=== PATIENT | male | born 1935 | race African-American/Black ===

== ENCOUNTER 2016-08-10 15:56 | Emergency (ER) | payer OTHER, MEDICARE ==
[2016-08-10] MEDS ORDERED: ACETAMINOPHEN 325 MG TABLET PO ONE (16:26)
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
[2016-08-10] MEDS ORDERED: HYDROCODONE/ACETAMINOPHEN 5-325 MG 6 TAB/DSPK PO PRN (18:56)
[2016-08-10 19:44] VITALS: BP 153/69
== END 2016-08-10 19:20 | disposition home or self-care (01) ==
LOC: ER 15:56
DX: S29.012A Strain of muscle and tendon of back wall of thorax, initial encounter (principal); S39.012A Strain of muscle, fascia and tendon of lower back, initial encounter; S16.1XXA Strain of muscle, fascia and tendon at neck level, initial encounter; M54.2 Cervicalgia; M54.9 Dorsalgia, unspecified; Z87.891 Personal history of nicotine dependence; V87.7XXA Person injured in collision between other specified motor vehicles (traffic), initial encounter
CPT/HCPCS: 70450; 72050; 72070; 72125; 72128; 72131; 99284

== ENCOUNTER 2016-09-29 05:23 | Day surgery (SDC) | payer MEDICARE, OTHER ==
[2016-09-22 11:37] LABS: APPEARANCE,URINE CLEAR; BILIRUBIN,URINE NEGATIVE (NEGATIVE); GLUCOSE, URINE NEGATIVE (NEGATIVE); KETONES,URINE NEGATIVE (NEGATIVE); LEUKOCYTE ESTERASE,URINE NEGATIVE (NEGATIVE); NITRITE,URINE NEGATIVE (NEGATIVE); PROTEIN,URINE 30 mg/dL (NEGATIVE); URINE SPECIFIC GRAVITY 1.013
[2016-09-22 11:48] LABS: HEMATOCRIT 34.6 % (37.9-51.0); HEMOGLOBIN 11.5 g/dL (13.5-17.0); HGB HCT DIFFERENCE -0.1; MEAN CORPUSCULAR HEMOGLOBIN 30.2 pg (27.0-33.4); MEAN CORPUSCULAR HGB CONC 33.4 g/dL (32.0-36.0); MEAN CORPUSCULAR VOLUME 91 fl (80-97); RED BLOOD COUNT 3.82 10^6/uL (4.35-5.55); RED CELL DISTRIBUTION WIDTH 14.3 % (11.5-14.0); WHITE BLOOD COUNT 8.5 10^3/uL (4.0-10.5)
[2016-09-22 12:15] LABS: ANION GAP 13 (5-19); BLOOD UREA NITROGEN 33 mg/dL (7-20); CALCIUM 10.2 mg/dL (8.4-10.2); CARBON DIOXIDE 26 mmol/L (22-30); CHLORIDE 105 mmol/L (98-107); CREATININE RESULT 1.62 mg/dL (0.52-1.25); GLUCOSE 93 mg/dL (75-110); POTASSIUM 5.2 mmol/L (3.6-5.0); SODIUM 144.1 mmol/L (137-145)
--- NOTE | 2016-09-22 21:40 | EKG REPORT ---
SEVERITY:- ABNORMAL ECG - SINUS RHYTHM RBBB AND LAFB : Confirmed by: Felipe Burns 22-Sep-2016 21:39:00
[~2016-09-29 05:23] MED LIST: CEFAZOLIN 2 GM/D5W RTU 2 GM/50 ML RTUPB IV PRN; LACTATED RINGERS 1000 ML IV PRN; LIDOCAINE 0.5% INJ-PF (5 MG/ML) 50 ML SDV SUBCUT PRN
[2016-09-29] MEDS ORDERED: LIDOCAINE 0.5% INJ-PF (5 MG/ML) 50 ML SDV ONE (06:51)
[2016-09-29] MEDS ORDERED: ACETAMINOPHEN 100 ML IV ONE (07:15)
[2016-09-29] MEDS ORDERED: DEXMEDETOMIDINE INJ 80 MCG/20 ML VIAL IV ONE (07:15)
[2016-09-29] MEDS ORDERED: PROPOFOL INJ 200 MG/20 ML VIAL IV ONE (07:15)
[2016-09-29] MEDS ORDERED: MIDAZOLAM 2 MG/2 ML INJ ONE (07:15)
[2016-09-29] MEDS ORDERED: FENTANYL CITRATE INJ/PF 100 MCG/2 ML AMPUL ONE (07:15)
[2016-09-29] MEDS ORDERED: KETAMINE HCL INJ 500 MG/10 ML VIAL ONE (07:21)
[2016-09-29] MEDS ORDERED: MEPERIDINE HCL/PF INJ 25 MG/1 ML DISP.SYRIN IV PRN (08:07)
[2016-09-29] MEDS ORDERED: MORPHINE SULFATE 10 MG/ML INJ IV PRN (08:07)
[2016-09-29] MEDS ORDERED: PROMETHAZINE HCL INJ 25 MG/1 ML VIAL IV PRN ×2 (08:07)
[2016-09-29] MEDS ORDERED: ONDANSETRON HCL INJ/PF 4 MG/2 ML SDV IV PRN ×2 (08:07→08:51)
[2016-09-29] MEDS ORDERED: FENTANYL CITRATE INJ/PF 100 MCG/2 ML AMPUL IV PRN ×3 (08:07)
[2016-09-29] MEDS ORDERED: DIPHENHYDRAMINE HCL 50 MG/ML VIAL IV PRN (08:07)
[2016-09-29] MEDS ORDERED: OXYCODONE HCL IR 5 MG TABLET PO PRN (08:51)
--- NOTE | 2016-09-29 09:10 | Operative Report ---
Operative Report DATE OF SURGERY: 09/29/16 PREOPERATIVE DIAGNOSIS: dupuytrens disease OPERATION: Dupuytren's disease, right palm SURGEON: HALLEY GARVIN ANESTHESIA: GA TISSUE REMOVED OR ALTERED: Cord to pathology ESTIMATED BLOOD LOSS: 25 PROCEDURE: With the patient supine on the operative the right upper arm is prepped and draped in sterile fashion. A zigzag incision is made beginning on the ulnar aspect of the DIP joint of the ring finger and extending proximally and radially to the PIP joint, ulnarly to the MCP joint and then zigzagged up almost to the palmar crease. The incision is opened and the underlying cord identified. Blunt dissection was used to develop the surrounding cord. It's divided proximally. The neurovascular structures are identified on either side of the ring finger in the cord. Dissection. Distal continues distally. It's transected along the ulnar border of the middle phalanx delivered from the field. The wound is irrigated. Hemostasis obtained with bipolar cautery. The wound is then reapproximated using interrupted 4-0 nylon. A sterile compressive dressing was applied and the patient's returned to the PACU.
[2016-09-29 10:50] VITALS: BP 159/75
[2016-09-29] MEDS ORDERED: LIDOCAINE 2% INJ-PF (20 MG/ML) 10 ML AMPUL ONE (11:02)
[2016-09-29] MEDS ORDERED: ONDANSETRON HCL INJ/PF 4 MG/2 ML SDV ONE (11:02)
== END 2016-09-29 10:55 | disposition home or self-care (01) ==
LOC: OROUT 05:23
PROVIDERS: ATTEND Orthopaedic Surgery
PROC: 0JNJ0ZZ Release Right Hand Subcutaneous Tissue and Fascia, Open Approach (ICD-10-PCS; principal; 2016-09-29 07:30)
DX: M72.0 Palmar fascial fibromatosis [Dupuytren] (principal); I10 Essential (primary) hypertension; M19.90 Unspecified osteoarthritis, unspecified site; E11.9 Type 2 diabetes mellitus without complications; Z79.899 Other long term (current) drug therapy; Z87.891 Personal history of nicotine dependence
CPT/HCPCS: 93005; 36415 ×2; 82962; 84132; 85027; 80048; 81001; 83036; 88304 ×2; 93010; 26123; J2250; J3010; J3490 ×4; J2405; J2704; A9270; J0690; J0131; 1810

== ENCOUNTER 2019-05-03 14:32 | Emergency (ER) | payer MEDICARE, OTHER ==
[2019-05-03] MEDS ORDERED: ACETAMINOPHEN 325 MG TABLET PO ONE (15:42)
--- NOTE | 2019-05-03 15:43 | ER Document Report ---
ED Medical Screen (RME) - General Chief Complaint: Fall Stated Complaint: FALL Time Seen by Provider: 05/03/19 15:38 Primary Care Provider: RADHA AGUILAR MD [Primary Care Provider] - Follow up as needed Mode of Arrival: Wheelchair Information source: Patient Notes: 83-year-old male presented to ED for complaint of pain to the left lower ribs and mouth after he fell while getting out of his truck. He states he just took a physical last week a day and everything was okay but today he tripped coming out of his truck and face planted. He stated it is very painful to take breath on the left lower ribs and is having a hard time. There is diminished lung sounds on the left lower lung. We will send him straight to x-ray. I have greeted and performed a rapid initial assessment of this patient. A comprehensive ED assessment and evaluation of the patient, analysis of test results and completion of medical decision making process will be conducted by an additional ED providers. TRAVEL OUTSIDE OF THE [place] IN LAST 30 DAYS: No - Related Data Allergies/Adverse Reactions: No Known Allergies Allergy (Verified 05/03/19 15:37) Past Medical History - Past Medical History Cardiac Medical History: Reports: Hx Hypertension Denies: Hx Coronary Artery Disease, Hx Heart Attack Pulmonary Medical History: Reports: Hx Asthma - A CHILD Denies: Hx Bronchitis, Hx COPD, Hx Pneumonia Neurological Medical History: Denies: Hx Cerebrovascular Accident, Hx Seizures Renal/ Medical History: Denies: Hx Peritoneal Dialysis Musculoskeltal Medical History: Reports Hx Arthritis - Immunizations Hx Diphtheria, Pertussis, Tetanus Vaccination: No Physical Exam - Vital signs Vitals: Temp Pulse Resp BP Pulse Ox 98.2 F 85 16 185/68 H 98 05/03/19 14:43 05/03/19 14:43 05/03/19 14:43 05/03/19 14:43 05/03/19 14:43 Course - Vital Signs Vital signs: Temp Pulse Resp BP Pulse Ox 98.2 F 85 16 185/68 H 98 05/03/19 14:43 05/03/19 14:43 05/03/19 14:43 05/03/19 14:43 05/03/19 14:43 Doctor's Discharge - Discharge Referrals: RADHA AGUILAR MD [Primary Care Provider] - Follow up as needed
--- NOTE | 2019-05-03 16:09 | RADIOLOGY REPORT (SQ) ---
EXAM DESCRIPTION: RIBS LEFT W/PA CHEST COMPLETED DATE/TIME: 05/03/2019 3:59 pm REASON FOR STUDY: fall pain with breathing COMPARISON: None. TECHNIQUE: Frontal view of the chest and additional views of the left ribs acquired. NUMBER OF VIEWS: Five view. LIMITATIONS: None. FINDINGS: FRONTAL CXR: No pneumothorax. No pleural effusion. No atelectasis or infiltrates. RIBS: Minimally displaced fractures of the anterior 6th and 7th ribs. OTHER: No other significant finding. IMPRESSION: MINIMALLY DISPLACED FRACTURES OF THE ANTERIOR LEFT 6TH AND 7TH RIBS. COMMENT: SITE OF TRAUMA/COMPLAINT MARKED/STAMP COMPLETED: YES. TECHNICAL DOCUMENTATION: JOB ID: [id number] [employer]- All Rights Reserved Reading location - IP/workstation name: [email or web address]
--- NOTE | 2019-05-03 16:19 | RADIOLOGY REPORT (SQ) ---
EXAM DESCRIPTION: CT FACIAL AREA WITHOUT COMPLETED DATE/TIME: 05/03/2019 4:10 pm REASON FOR STUDY: fell facial pain COMPARISON: None. TECHNIQUE: Noncontrasted images through the facial bones and orbits windowed for bone and soft tissu e. Additional coronal and sagittal reconstructed images reviewed. All images stored on PACS. All CT scanners at this facility use dose modulation, iterative reconstruction, and/or weight based d osing when appropriate to reduce radiation dose to as low as reasonably achievable (ALARA). [facility]: Dose Right [facility]: CareDose [facility]: Dose Right [facility]: Teradose 4D [facility]: [employer] RADIATION DOSE: CT Rad equipment meets quality standard of care and radiation dose reduction techniq ues were employed. CTDIvol: 30.4 mGy. DLP: 595 mGy-cm. mGy. LIMITATIONS: None. FINDINGS: FACIAL BONES: No fracture or bone lesion. ORBITS: Intact. No fracture. Symmetric intact globes and retroorbital soft tissues. PARANASAL SINUSES: Clear. No significant mucosal thickening, mass or fluid. No nasal polyps. Maxill josephine sinus outlets are patent. SOFT TISSUES: No mass or edema. INFERIOR BRAIN: Limited view. No acute findings. OTHER: No other significant finding. IMPRESSION: NO ACUTE FINDINGS. TECHNICAL DOCUMENTATION: JOB ID: [id number] Quality ID # [id number]: Final reports with documentation of one or more dose reduction techniques (e.g., Au tomated exposure control, adjustment of the mA and/or kV according to patient size, use of iterative reconstruction technique) 2010 [employer]- All Rights Reserved Reading location - IP/workstation name: [email or web address]
[2019-05-03] MEDS ORDERED: LIDOCAINE 1% INJ-PF (10 MG/ML) 30 ML SDV INJ ONE (21:10)
[2019-05-03] MEDS ORDERED: AMOXICILLIN TRIHYD 250 MG CAPSULE PO ONE (23:00)
[2019-05-03] MEDS ORDERED: AMOXICILLIN TR/POT CLAVULANATE 500-125 MG TAB PO ONE (23:01)
--- NOTE | 2019-05-03 23:05 | ER Document Report ---
ED General - General Chief Complaint: Fall Injury Stated Complaint: FALL Time Seen by Provider: 05/03/19 15:38 Primary Care Provider: RADHA AGUILAR MD [Primary Care Provider] - Follow up in 3-5 days FLORESITA KINNEY MD [ACTIVE STAFF] - Follow up tomorrow Mode of Arrival: Wheelchair Notes: Patient is an 83-year-old male who presents the emergency department with a chief complaint of left rib pain and mouth pain. He was getting out of his truck and he ended up falling. He saw his primary care provider last week and everything was normal. Patient denies any chest pain, but does have rib pain. Patient is not on blood thinners and he is up-to-date on his immunizations. Patient denies any other symptoms. TRAVEL OUTSIDE OF THE [place] IN LAST 30 DAYS: No - Related Data Allergies/Adverse Reactions: No Known Allergies Allergy (Verified 05/03/19 15:37) Past Medical History - General Information source: Patient - Social History Smoking Status: Former Smoker Chew tobacco use (# tins/day): No Frequency of alcohol use: None Drug Abuse: None Family History: Reviewed & Not Pertinent Patient has suicidal ideation: No Patient has homicidal ideation: No - Past Medical History Cardiac Medical History: Reports: Hx Hypertension Denies: Hx Coronary Artery Disease, Hx Heart Attack Pulmonary Medical History: Reports: Hx Asthma - A CHILD Denies: Hx Bronchitis, Hx COPD, Hx Pneumonia Neurological Medical History: Denies: Hx Cerebrovascular Accident, Hx Seizures Renal/ Medical History: Denies: Hx Peritoneal Dialysis Musculoskeletal Medical History: Reports Hx Arthritis - Immunizations Hx Diphtheria, Pertussis, Tetanus Vaccination: No Hx Pneumococcal Vaccination: 04/23/13 Review of Systems - Review of Systems Notes: REVIEW OF SYSTEMS: CONSTITUTIONAL : Denies recent illness. Denies recent unintentional weight loss. Denies fever, chills, or sweats. EENT: Denies eye, ear, throat, discharge, or symptoms. Denies nasal or sinus congestion. See HPI. CARDIOVASCULAR: Denies chest pain. RESPIRATORY: Denies shortness of breath, cough, congestion, difficulty breathing, or wheezing. GASTROINTESTINAL: Denies nausea, vomiting, and diarrhea. Denies abdominal pain. Denies constipation. GENITOURINARY: Denies difficulty urinating, burning, blood in urine, urgency or frequency. MUSCULOSKELETAL: See HPI. SKIN: See HPI. HEMATOLOGIC : Denies easy bruising or bleeding. LYMPHATIC: Denies swollen, painful, enlarged glands. NEUROLOGICAL: Denies no numbness or tingling denies weakness. Denies headache. Denies altered mental status. Denies alteration in speech. PSYCHIATRIC: Denies stress, anxiety, alteration in sleep patterns, or depression. All other systems reviewed and negative. Physical Exam - Vital signs Vitals: Temp Pulse Resp BP Pulse Ox 98.2 F 85 16 185/68 H 98 05/03/19 14:43 05/03/19 14:43 05/03/19 14:43 05/03/19 14:43 05/03/19 14:43 - Notes Notes: PHYSICAL EXAMINATION: GENERAL: Appears well, healthy, well-nourished, no acute distress. HEAD: Normocephalic, atraumatic. EYES: PERRL, conjunctiva normal, all extraocular movements intact, sclera nonicteric ENT: Moist mucous membranes. NECK: Supple, no noticeable swelling, redness, rash. Normal range of motion. LUNGS: Equal breath sounds bilaterally and clear to auscultation. No wheezes rales or rhonchi. CARDIOVASCULAR: S1-S2, regular rate, regular rhythm. Radial pulses 2+, normal. ABDOMEN: Normoactive bowel sounds. Soft, nontender, no guarding, no rebound tenderness, and no masses palpated. EXTREMITIES: Normal strength and range of motion, no pitting or edema. No cyanosis. NEUROLOGICAL: Moves all extremities upon command. Strength 5/5 in all ex tremities. PSYCH: Normal mood, normal affect. SKIN: Warm, dry. No rash, lesions, ulcerations noted. Normal skin turgor. Laceration noted to left lower lateral lip. Patient's bottom lip mucosal membrane wrapped around left incisor. Course - Re-evaluation Re-evalutation: 05/04/19 Patient's lower lip was anesthetized with 1% lidocaine. I then released his lip from his incisor and place a suture to the hole. The left lower lateral lip was repaired. See procedure note. Patient CT of the head was negative for any intracranial bleeding. Patient does have rib fractures to his left sixth and seventh rib. He will be sent home with an incentive spirometer to prevent pneumonia. I have advised him to take ibuprofen and Tylenol for pain relief. Patient will be referred to plastic surgery to reevaluate his lip. He will also be started on Augmentin. He is in agreement with this plan. Follow-up precautions were given. Verbal discharge instructions were given to the patient. They verbalized understanding. They are stable for discharge. - Vital Signs Vital signs: Temp Pulse Resp BP Pulse Ox 99.1 F 75 20 145/99 H 100 05/03/19 23:32 05/03/19 23:32 05/03/19 23:32 05/03/19 23:32 05/03/19 23:32 Discharge - Discharge Clinical Impression: Rib fractures Fall Qualifiers: Encounter type: initial encounter Qualified Code(s): W19.XXXA - Unspecified fall, initial encounter Lip laceration Qualifiers: Encounter type: initial encounter Qualified Code(s): S01.511A - Laceration without foreign body of lip, initial encounter Condition: Stable Disposition: HOME, SELF-CARE Instructions: Laceration Care ([facility]), Prophylactic Antibiotic ([facility]) Additional Instructions: You were seen today in the emergency department for a fall. You have rib fractures on the left side. The sixth and seventh ribs have fractures to them. Please use the incentive spirometer to help prevent pneumonia. Please follow-up with your primary care provider in regards to this visit. You are also being referred to plastic surgery for reevaluation of your lip laceration. Please eat non-spicy foods. Stick to applesauce and bland foods to help prevent pain. You are also being started on antibiotics. Please take all your antibiotics as prescribed. Prescriptions: Amox Tr/Potassium Clavulanate [Augmentin 875-125 Tablet] 1 tab PO BID 7 Days #14 tablet Referrals: RADHA AGUILAR MD [Primary Care Provider] - Follow up in 3-5 days FLORESITA KINNEY MD [ACTIVE STAFF] - Follow up tomorrow
[2019-05-03 23:33] VITALS: BP 145/99
--- NOTE | 2019-05-04 07:20 | EKG REPORT ---
SEVERITY:- ABNORMAL ECG - SINUS RHYTHM RIGHT BUNDLE BRANCH BLOCK : Confirmed by: Felipe Burns 04-May-2019 07:19:14
== END 2019-05-03 23:43 | disposition home or self-care (01) ==
LOC: ER 14:32
DX: S01.511A Laceration without foreign body of lip, initial encounter (principal); S22.42XA Multiple fractures of ribs, left side, initial encounter for closed fracture; R07.81 Pleurodynia; V58.4XXA Person boarding or alighting a pick-up truck or van injured in noncollision transport accident, initial encounter; I10 Essential (primary) hypertension
CPT/HCPCS: 93005; 99284; 71101; 70486; 93010; 12011; A9270 ×3; J3490

== ENCOUNTER 2020-04-10 17:29 | Inpatient (IN) | payer MEDICARE, OTHER ==
[2020-04-10 18:56] LABS: HEMATOCRIT 37.1 % (37.9-51.0); HEMOGLOBIN 12.9 g/dL (13.5-17.0); MEAN CORPUSCULAR HEMOGLOBIN 33.6 pg (27.0-33.4); MEAN CORPUSCULAR HGB CONC 34.7 g/dL (32.0-36.0); MEAN CORPUSCULAR VOLUME 97 fl (80-97); PLATELET COUNT 290 10^3/uL (150-450); RED BLOOD COUNT 3.83 10^6/uL (4.35-5.55); RED CELL DISTRIBUTION WIDTH 16.4 % (11.5-14.0); WHITE BLOOD COUNT 9.5 10^3/uL (4.0-10.5)
[2020-04-10 19:09] LABS: ALBUMIN 4.3 g/dL (3.5-5.0); ALKALINE PHOSPHATASE 74 U/L (38-126); ANION GAP 9 (5-19); ASPARTATE AMINO TRANSFERASE 27 U/L (17-59); BILIRUBIN,DIRECT 0.4 mg/dL (0.0-0.4); BILIRUBIN,TOTAL 0.6 mg/dL (0.2-1.3); BLOOD UREA NITROGEN 38 mg/dL (7-20); CALCIUM 9.3 mg/dL (8.4-10.2); CARBON DIOXIDE 24 mmol/L (22-30); CHLORIDE 112 mmol/L (98-107); CREATINE KINASE 176 U/L (55-170); GLUCOSE 99 mg/dL (75-110); POTASSIUM 4.8 mmol/L (3.6-5.0); TOTAL PROTEIN 7.9 g/dL (6.3-8.2)
[2020-04-10 19:21] LABS: CREATINE KINASE MB 1.23 ng/mL (<4.55)
[2020-04-10 19:22] LABS: ABSOLUTE LYMPHOCYTES# (MANUAL) 1.3 10^3/uL (0.5-4.7); ABSOLUTE MONOCYTES # (MANUAL) 0.4 10^3/uL (0.1-1.4); BASOPHILS % (MANUAL) 0 % (0-2); EOSINOPHILS % (MANUAL) 0 % (0-6); LYMPHOCYTES % (MANUAL) 14 % (13-45); MONOCYTES % (MANUAL) 4 % (3-13); SEGMENTED NEUTROPHILS % (MAN) 82 % (42-78); TOTAL CELLS COUNTED 100
[2020-04-10 19:23] LABS: ANISOCYTOSIS 1+; PLATELET COMMENT ADEQUATE; TROPONIN I < 0.012 ng/mL
--- NOTE | 2020-04-10 20:56 | ER Document Report ---
ED General - General Chief Complaint: Syncope Stated Complaint: WEAKNESS/CONFUSION Time Seen by Provider: 04/10/20 20:13 Notes: Patient is an 84-year-old male that comes emergency department for chief complaint of syncopal episode. Patient states he hit his head on the side of the bed tonight when this happened. Patient denies headache. Patient states he still has vague tingling sensation in his extremities. There was a friend with the patient per EMS stated that the patient after he passed out seemed to have a facial droop and slurred speech, and he was complaining that his extremities were tingling. EMS noted the patient's blood glucose was in the 50s, patient was given oral glucose by EMS. When I asked patient states that he did not eat dinner and he also missed breakfast today. Patient also states that he is on glipizide, has been self around a month, he has passed out multiple times over the past 2 weeks. He denies chest pain, nausea/vomiting, fever/chills, shortness of breath, focal numbness or weakness, visual changes. Past medical history of DMII and hypertension. TRAVEL OUTSIDE OF THE [place] IN LAST 30 DAYS: No - Related Data Allergies/Adverse Reactions: No Known Allergies Allergy (Verified 05/03/19 15:37) Past Medical History - General Information source: Patient - Social History Smoking Status: Never Smoker Frequency of alcohol use: None Drug Abuse: None Lives with: Family Family History: Reviewed & Not Pertinent - Past Medical History Cardiac Medical History: Reports: Hx Hypertension Denies: Hx Coronary Artery Disease, Hx Heart Attack Pulmonary Medical History: Reports: Hx Asthma - A CHILD Denies: Hx Bronchitis, Hx COPD, Hx Pneumonia Neurological Medical History: Denies: Hx Cerebrovascular Accident, Hx Seizures Renal/ Medical History: Denies: Hx Peritoneal Dialysis Musculoskeletal Medical History: Reports Hx Arthritis - Immunizations Hx Diphtheria, Pertussis, Tetanus Vaccination: No Hx Pneumococcal Vaccination: 04/23/13 Review of Systems - Review of Systems Constitutional: See HPI EENT: No symptoms reported Cardiovascular: See HPI Respiratory: No symptoms reported Gastrointestinal: No symptoms reported Genitourinary: No symptoms reported Male Genitourinary: No symptoms reported Musculoskeletal: No symptoms reported Skin: No symptoms reported Hematologic/Lymphatic: No symptoms reported Neurological/Psychological: See HPI Physical Exam - Vital signs Vitals: Temp 98.4 F 04/10/20 17:30 - Notes Notes: GENERAL: Alert, interacts well. No acute distress. HEAD: Normocephalic, atraumatic. EYES: Pupils equal, round, and reactive to light. Extraocular movements intact. ENT: Oral mucosa moist, tongue midline. Oropharynx unremarkable. Airway patent. NECK: Full range of motion. Supple. Trachea midline. No lymphadenopathy. LUNGS: Clear to auscultation bilaterally, no wheezes, rales, or rhonchi. No respiratory distress. Non-tender chest wall. HEART: Regular rate and rhythm. No murmur ABDOMEN: Soft, non-tender. Non-distended. EXTREMITIES: Moves all 4 extremities spontaneously. No edema, normal radial and dorsalis pedis pulses bilaterally. No cyanosis. BACK: no cervical, thoracic, lumbar midline tenderness. No saddle anesthesia, normal distal neurovascular exam. Moves all extremities in full range of motion. NEUROLOGICAL: Alert and oriented x3. Normal speech. Cranial nerves II through XII grossly intact. Strength 5/5 in all extremities. PSYCH: Normal affect, normal mood. SKIN: Skin avulsion and almost ulceration to the right anterior ankle, otherwise unremarkable. Course - Re-evaluation Re-evalutation: Patient is alert and well-appearing. He is not having any current symptoms, his vital signs at this time are unremarkable. No obvious signs of trauma from his syncopal episode, he reported hitting his head, CT of the head and neck are negative, patient with no headache or neurological symptoms at this time. CBC nonspecific, chemistry unremarkable, glucose is 72, this was rechecked and was 70, patient was fed (patient ate crackers and a whole ham sandwich) and is still down trended, suspect patient had syncopal episode secondary to hypoglycemia from sulfonylureas. EKG nonspecific, initial troponin negative, chest x-ray unremarkable, remaining work-up nonspecific. Repeat troponin is indeterminate now which is slightly elevated but is not in the positive range. Patient still denies any symptoms. Because of patient's hypoglycemia, sulfonylurea use, syncopal episode, advanced age, and elevating troponin I discussed with Dr. pugh, will discuss with hospitalist for admission/observation. I discussed with patient, he states understanding and agreement. Discussed with Dr. Sims, hospitalist, patient accepted to telemetry full admission. - Vital Signs Vital signs: Temp Pulse Resp BP Pulse Ox 98.3 F 66 14 152/55 H 100 04/11/20 03:16 04/11/20 03:16 04/11/20 03:16 04/11/20 03:16 04/11/20 03:16 - Laboratory Result Diagrams: 04/10/20 18:40 04/10/20 18:40 Laboratory results interpreted by me: 04/10/20 04/10/20 04/11/20 18:40 18:40 01:17 RBC 3.83 L Hgb 12.9 L Hct 37.1 L MCH 33.6 H RDW 16.4 H Seg Neuts % (Manual) 82 H Sodium 145.4 H Chloride 112 H BUN 38 H Creatinine 2.39 H Est GFR ( Amer) 32 L Est GFR (MDRD) Non-Af 26 L POC Glucose 132 H Creatine Kinase 176 H - EKG Interpretation by Me Additional EKG results interpreted by me: EKG shows sinus rhythm at a rate of 64, QTc 463, left axis deviation. no T wave inversions or ST segment changes in consecutive leads. CA interval of 176. Discharge - Discharge Clinical Impression: Hypoglycemia Syncopal episodes Qualifiers: Syncope type: unspecified Qualified Code(s): R55 - Syncope and collapse Condition: Stable Disposition: ADMITTED INPATIENT Admitting Provider: Levi (Hospitalist) Unit Admitted: Telemetry
--- NOTE | 2020-04-10 22:03 | EKG REPORT ---
SEVERITY:- ABNORMAL ECG - SINUS RHYTHM RIGHT BUNDLE BRANCH BLOCK : Confirmed by: Evi Neumann MD 10-Apr-2020 22:01:49
--- NOTE | 2020-04-10 22:18 | RADIOLOGY REPORT (SQ) ---
CT BRAIN AND CERVICAL SPINE HISTORY: Trauma. COMPARISON: 08/10/2016 TECHNIQUE: CT scan of the brain and cervical spine was performed without IV contrast. This exam was performed according to our departmental dose-optimization program, which includes automated exposure control, adjustment of the mA and/or kV according to patient size and/or use of iterative reconstruction technique. FINDINGS: BRAIN: There are scattered areas of hypoattenuation within the periventricular white matter, which likely represent chronic microvascular ischemia. No evidence of acute infarction, intracranial hemorrhage, extra-axial fluid collection, or midline shift. No air-fluid levels are seen in the paranasal sinuses to suggest acute sinusitis. No depressed skull fracture. CERVICAL SPINE: No acute cervical fracture or prevertebral soft tissue swelling. There is straightening of the normal cervical lordosis, which may be due to cervical collar, muscle spasm, or patient positioning. There is multilevel degenerative disc disease and facet arthropathy throughout cervical spine. The spinal canal is not well-visualized due to artifact. No definite evidence of high-grade spinal canal stenosis however. IMPRESSION: 1. No acute intracranial hemorrhage. 2. No acute fracture or subluxation of the cervical spine.
[2020-04-11] MEDS ORDERED: NORMAL SALINE 1000 ML 1,000 ML IV ONE (01:46)
[2020-04-11] MEDS ORDERED: ONDANSETRON HCL INJ/PF 4 MG/2 ML SDV IV PRN (01:47)
[2020-04-11] MEDS ORDERED: ACETAMINOPHEN 325 MG TABLET PO PRN (01:47)
[2020-04-11] MEDS ORDERED: PROMETHAZINE HCL INJ 25 MG/1 ML VIAL IV PRN (01:47)
[2020-04-11] MEDS ORDERED: TEMAZEPAM 7.5 MG CAPSULE PO PRN (01:47)
[2020-04-11] MEDS ORDERED: IPRATROPIUM/ALBUTEROL 0.5-2.5 MG/3 ML AMPUL NEB PRN (01:47)
[2020-04-11] MEDS ORDERED: NORMAL SALINE 1000 ML 1,000 ML IV PRN (01:47)
[2020-04-11] MEDS ORDERED: MAGNESIUM HYDROXIDE SUSP 30 ML UDCUP PO PRN (01:47)
[2020-04-11] MEDS ORDERED: HYDRALAZINE HCL INJ/PF 20 MG/1 ML SDV IV PRN (01:57)
[2020-04-11] MEDS ORDERED: GLUCAGON,HUMAN RECOMB 1 MG INJ IM PRN (01:59)
[2020-04-11] MEDS ORDERED: DEXTROSE 50%-WATER 25 GM/50 ML DISP.SYRIN IV PRN ×2 (01:59)
[2020-04-11] MEDS ORDERED: DEXTROSE 40% GEL 15 GM TUBE PO PRN ×2 (01:59)
--- NOTE | 2020-04-11 02:01 | RADIOLOGY REPORT (SQ) ---
CHEST X-RAY 1 VIEW on 04/11/2020 at 1:36 AM CLINICAL INDICATION: Syncopal episode COMPARISON: 05/03/2019 FINDINGS: Heart is upper limits normal for size. A few wires are noted projecting over the chest. The lungs are clear. Hilar and mediastinal contours are within normal limits. Mild degenerative changes are noted in the shoulders. Pulmonary vascularity is within normal limits. IMPRESSION: No acute disease.
--- NOTE | 2020-04-11 04:06 | PDOC H&P ---
History of Present Illness Admission Date/PCP: 04/11/20 01:30 RADHA AGUILAR MD History of Present Illness: ZAYNAB MADRIGAL is a 84 year old male past medical history of diabetes, hypertensio n, hyperlipidemia, BPH, erectile dysfunction, diabetic neuropathy, brought to ED after syncopal episode. Patient was found on the floor by her friend and EMS was called and patient was noted to have blood glucose level of 50s, patient was started on hypoglycemic protocol and hospitalist consulted for admission. CT head and neck were negative for acute abnormality. On my encounter patient comfortably sitting with no apparent distress, alert and oriented x4, cooperative and pleasant, denies any focal neurological symptoms, stating that 3 weeks ago he was found on the floor by his friend but did not seek any medical attention, patient is stating that once a while he feels lightheaded but denies any chest pain, palpitation, history of stroke, TIA, or any cardiac history. Patient was found on the floor again today by history as patient was brought to ED, patient stating that he does not recall anything preceding to the event however when his friend picked him up he was alert and oriented and was not confused, he was not noted to have had any convulsions. Patient denies any fever, chills, nausea, vomiting, diarrhea, constipation or any urinary symptoms. Patient has severe bilateral lower extremity neuropathy, as a result he tends to hit his lower extremities backslash has sustained several minor traumas, he also had a left foot heel ulceration due to the fall. He does wear diabetic shoes. Patient was seen by his PCP about 3 weeks ago and he was told that he was totally fine. Patient takes multiple medications including amlodipine, lisinopril, hydrochlorothiazide, Januvia, pioglitazone, glyburide, tadalafil, sildenafil. Patient does not use any [id number] NSAIDs or any nephrotoxic medication. Patient does state that he does not drink much fluid due to his BPH. Past Medical History Cardiac Medical History: Reports: Hypertension Denies: Coronary Artery Disease, Myocardial Infarction Pulmonary Medical History: Reports: Asthma - A CHILD Denies: Bronchitis, Chronic Obstructive Pulmonary Disease (COPD), Pneumonia Neurological Medical History: Denies: Seizures Musculoskeltal Medical History: Reports: Arthritis Hematology: Denies: Anemia Social History Smoking Status: Never Smoker Family History Family History: Reviewed & Not Pertinent Parental Family History Reviewed: Yes Children Family History Reviewed: Yes Sibling(s) Family History Reviewed.: Yes Medication/Allergy Home Medications: Amlodipine Besylate [Norvasc 5 mg Tablet] 5 mg PO QPM 05/03/19 Amox Tr/Potassium Clavulanate [Augmentin 875-125 Tablet] 1 tab PO BID 7 Days #14 tablet 05/03/19 Glipizide [Glipizide Xl] 10 mg PO BID 05/03/19 Lisinopril/Hydrochlorothiazide [Lisinopril-Hctz 20-12.5 mg Tab] 1 tab PO DAILY 05/03/19 Pioglitazone HCl [Actos 30 mg Tablet] 30 mg PO DAILY 05/03/19 Pravastatin Sodium 40 mg PO QHS 05/03/19 Vit/Dha [ Multi + Dha Capsule] 1 cap PO DAILY 05/03/19 Sitagliptin Phosphate [Januvia 50 mg Tablet] 50 mg PO DAILY 05/03/19 Allergies/Adverse Reactions: No Known Allergies Allergy (Verified 05/03/19 15:37) Review of Systems Review of Systems: as per hpi Physical Exam Vital Signs: Temp Pulse Resp BP Pulse Ox 98.4 F 15 143/66 H 99 04/10/20 17:30 04/11/20 02:01 04/11/20 02:01 04/11/20 02:01 Intake & Output 04/09/20 04/10/20 04/11/20 06:59 06:59 06:59 Weight 86.3 kg General appearance: PRESENT: no acute distress, well-developed, well-nourished Head exam: PRESENT: atraumatic, normocephalic Respiratory exam: PRESENT: clear to auscultation linwood. ABSENT: rales, rhonchi, wheezes Cardiovascular exam: PRESENT: RRR. ABSENT: diastolic murmur, rubs, systolic murmur GI/Abdominal exam: PRESENT: normal bowel sounds, soft. ABSENT: distended, guarding, mass, organolmegaly, rebound, tenderness Extremities exam: PRESENT: full ROM. ABSENT: calf tenderness, clubbing, pedal edema Neurological exam: PRESENT: alert, awake, oriented to person, oriented to place, oriented to time, oriented to situation, CN II-XII grossly intact. ABSENT: motor sensory deficit Skin exam: PRESENT: dry, intact, warm, other - Multiple scabs anterior bilateral talavera. Left heel healing ulceration 4 x 4 cm. No sign of discharge. No tenderne ss.. ABSENT: cyanosis, rash Results Laboratory Results: 04/10/20 18:40 04/10/20 18:40 04/10/20 04/10/20 18:40 18:40 WBC 9.5 RBC 3.83 L Hgb 12.9 L Hct 37.1 L MCV 97 MCH 33.6 H MCHC 34.7 RDW 16.4 H Plt Count 290 Seg Neutrophils % Not Reportable Sodium 145.4 H Potassium 4.8 Chloride 112 H Carbon Dioxide 24 Anion Gap 9 BUN 38 H Creatinine 2.39 H Est GFR ( Amer) 32 L Glucose 99 Calcium 9.3 Total Bilirubin 0.6 AST 27 Alkaline Phosphatase 74 Total Protein 7.9 Albumin 4.3 04/10/20 04/10/20 04/11/20 18:40 18:40 00:04 Creatine Kinase 176 H CK-MB (CK-2) 1.23 Troponin I < 0.012 0.028 Impressions: Cervical Spine CT 04/10/20 20:54 IMPRESSION: 1. No acute intracranial hemorrhage. 2. No acute fracture or subluxation of the cervical spine. Head CT 04/10/20 20:54 IMPRESSION: 1. No acute intracranial hemorrhage. 2. No acute fracture or subluxation of the cervical spine. Chest X-Ray 04/11/20 01:13 IMPRESSION: No acute disease. Assessment and Plan - Diagnosis (1) Syncopal episodes Qualifiers: Syncope type: unspecified Qualified Code(s): R55 - Syncope and collapse Is this a current diagnosis for this admission?: Yes Plan: Likely due to hypoglycemia and orthostatic hypotension complicated by polypharmacy. Patient does not take much p.o. fluids, takes lisinopril, hydrochlorothiazide, amlodipine, tadalafil and Cialis. Denies any CAD, denies any chest pain, denies any palpitation, any history of seizure disorder TIA or CVA. CT head and neck negative for any acute abnormalities. Admit to telemetry, fall, seizure and aspiration precautions. Adjust medications, hold antidiabetic's. (2) Hypoglycemia Is this a current diagnosis for this admission?: Yes Plan: Likely due to polypharmacy in the setting of worsening renal function. Patient taking glipizide, pioglitazone and Januvia. Creatinine is 2.35 from baseline of 1.6. Admit to telemetry, hypoglycemia protocol, encourage frequent snacking. Titrate antidiabetics based on renal function. (3) Hypertension Is this a current diagnosis for this admission?: Yes Plan: Uncontrolled. Clinically looks dry. Home medications are lisinopril, hydrochlorothiazide, amlodipine. Patient also taking prazosin, Cialis and tadalafil. Need to DC hydrochlorothiazide due to recently renal function and orthostatic hypotension. Hold lisinopril pending stabilization renal function. Continue amlodipine, PRN IV hydralazine, PRN IV metoprolol. Patient was advised to ED takes tadalafil or Cialis and was cautioned about the risk of hypotension. Patient voiced understanding. (4) Acute kidney injury superimposed on CKD Is this a current diagnosis for this admission?: Yes Plan: Multifactorial. Likely due to chronic hypertension diabetes worsened by prerenal due to dehydration and likely hypotension caused by polypharmacy. Electrolytes WNL, monitor electrolytes and volume status, replace electrolytes as needed. Cautious volume restriction guided by volume status. Avoid nephrotoxic meds. Nephrology consulted. Follow-up recommendations. (5) Polypharmacy Is this a current diagnosis for this admission?: Yes Plan: Patient taking prazosin, amlodipine, tadalafil, Cialis, amlodipine, hydrochlorothiazide, lisinopril, Januvia, glipizide, pioglitazone. Patient medication needs to be readjusted due to risk of hypoglycemia and orthostatic hypotension and syncope. (6) Diabetic neuropathy Qualifiers: Diabetes mellitus type: type 2 Is this a current diagnosis for this admission?: Yes Plan: Bilateral lower extremity severe diabetic neuropathy. Patient has sustained several anterior talavera with scab formation. Patient also have a healing ulcer in his left heel with with no sign infection. Patient does have diabetic shoes. Will start on gabapentin, optimize diabetic control. Wound care. Indicated call surgery for evaluation of foot ulcer. (7) Diabetes Qualifiers: Diabetes mellitus type: type 2 Is this a current diagnosis for this admission?: Yes Plan: Presented with hypoglycemia. No recent hemoglobin A1c. Hemoglobin stable in 2017 11.1%. Patient probably is overtreated for his diabetes. Given age and multiple comorbidities patient hemoglobin A1c goal should be above 7%. Diabetic diet, diabetic education, sliding scale insulin, hold oral antidiabetic's, adjust dose as needed, Accu-Chek, hypoglycemia protocol. - Time Time Spent with patient: 35 or more minutes Medications reviewed and adjusted accordingly: Yes Anticipated Discharge Disposition: Home with Home Health Anticipated Discharge Timeframe: within 72 hours
[2020-04-11] MEDS ORDERED: ASPIRIN 81 MG TABLET, CHEWABLE PO ONE (04:15)
[2020-04-11] MEDS: GABAPENTIN 100 MG CAPSULE PO SCH ×3 (05:01→21:31)
[2020-04-11] MEDS: HEPARIN SOD (PORCINE) 5,000 UNIT/ML 1 ML VIAL SUBCUT SCH ×3 (05:01→21:31)
[2020-04-11] MEDS: INSULIN LISPRO 100 UNIT/ML 3 ML VIAL SUBCUT SCH ×4 (09:32→21:13)
[2020-04-11] MEDS: DOCUSATE SODIUM 100 MG CAPSULE PO SCH (09:34)
[2020-04-11] MEDS: FAMOTIDINE 20 MG TABLET PO SCH (09:34)
[2020-04-11] MEDS: AMLODIPINE BESYLATE 5 MG TABLET PO SCH ×2 (09:34→21:31)
[2020-04-11] MEDS: LISINOPRIL 10 MG TABLET PO SCH (09:34)
[2020-04-11] MEDS: HYDROCHLOROTHIAZIDE 12.5 MG TABLET PO SCH (09:36)
[2020-04-11] MEDS ORDERED: AMOXICILLIN TR/POT CLAVULANATE 875-125 MG TAB PO SCH (10:00)
[2020-04-11] MEDS ORDERED: AMOXICILLIN TR/POT CLAVULANATE 500-125 MG TAB PO SCH (10:30)
[2020-04-11] MEDS: SITAGLIPTIN PHOSPHATE 50 MG TABLET PO SCH (11:44)
[2020-04-11 11:54] LABS: ABSOLUTE EOSINOPHILS # (AUTO) 0.2 10^3/uL (0.0-0.6); ABSOLUTE LYMPHOCYTES (AUTO) 2.3 10^3/uL (0.5-4.7); ABSOLUTE MONOCYTES (AUTO) 0.5 10^3/uL (0.1-1.4); ABSOLUTE NEUT (AUTO) 5.4 10^3/uL (1.7-8.2); ABSOLUTE RETICS # 0.027 10^6/uL (0.028-0.122); BASOPHILS % (AUTO) 0.5 % (0-2); EOSINOPHILS % (AUTO) 2.1 % (0-6); HEMOGLOBIN 11.1 g/dL (13.5-17.0); LYMPHOCYTES % (AUTO) 26.9 % (13-45); MEAN CORPUSCULAR HEMOGLOBIN 33.9 pg (27.0-33.4); MEAN CORPUSCULAR HGB CONC 34.7 g/dL (32.0-36.0); MEAN CORPUSCULAR VOLUME 98 fl (80-97); MONOCYTES % (AUTO) 6.3 % (3-13); PLATELET COUNT 273 10^3/uL (150-450); RED BLOOD COUNT 3.28 10^6/uL (4.35-5.55); RED CELL DISTRIBUTION WIDTH 16.2 % (11.5-14.0); RETICULOCYTE COUNT (AUTO) 0.83 % (0.66-2.85); SEGMENTED NEUTROPHILS % (AUTO) 64.2 % (42-78); TOTAL CELLS COUNTED % (AUTO) 100 %; WHITE BLOOD COUNT 8.4 10^3/uL (4.0-10.5)
--- NOTE | 2020-04-11 12:15 | RADIOLOGY REPORT (SQ) ---
EXAM DESCRIPTION: U/S RETROPERITON LTD IMAGES COMPLETED DATE/TIME: 04/11/2020 2:56 am REASON FOR STUDY: SANDIE COMPARISON: None. TECHNIQUE: Dynamic and static grayscale images acquired of the kidneys and bladder and recorded on P ACS. Additional selected color Doppler and spectral images recorded. LIMITATIONS: None. FINDINGS: RIGHT KIDNEY: Normal size, 9.6 cm. Normal echogenicity. No solid or suspicious masses . No hydronephrosis. No calcifications. LEFT KIDNEY: Normal size, 9.1 cm. Normal echogenicity. No solid masses. There are some small cy sts. No hydronephrosis. No calcifications. BLADDER: There is nodular protrusion of the prostate gland into the base of the bladder. The prostat e gland is enlarged, measuring 6.1 x 4.5 x 5.1 cm. Ureteral jets are not seen. OTHER FINDINGS: No other significant finding. IMPRESSION: Prostatic enlargement with nodular protrusion into the base of the bladder. TECHNICAL DOCUMENTATION: JOB ID: [id number] 2010 [employer]- All Rights Reserved Reading location - IP/workstation name: [email or web address]
[2020-04-11 12:19] LABS: ANION GAP 8 (5-19); BLOOD UREA NITROGEN 36 mg/dL (7-20); CALCIUM 8.6 mg/dL (8.4-10.2); CARBON DIOXIDE 22 mmol/L (22-30); CHLORIDE 113 mmol/L (98-107); GLUCOSE 107 mg/dL (75-110); PHOSPHORUS 2.8 mg/dL (2.5-4.5); POTASSIUM 4.5 mmol/L (3.6-5.0)
[2020-04-11 13:25] LABS: FOLATE > 20.00 ng/mL (>2.76)
[2020-04-11] MEDS: 1/2 NORMAL SALINE 1,000 ML IV PRN (14:59)
[2020-04-11] MEDS ORDERED: CYANOCOBALAMIN (VITAMIN B-12) INJ 1000 MCG/1 ML VIAL IM ONE (15:00)
[2020-04-11] MEDS ORDERED: TAMSULOSIN HCL 0.4 MG CAP.SR.24H PO SCH (18:00)
[2020-04-11 19:54] LABS: APPEARANCE,URINE CLEAR; BILIRUBIN,URINE NEGATIVE (NEGATIVE); COLOR,URINE YELLOW; GLUCOSE, URINE NEGATIVE (NEGATIVE); KETONES,URINE NEGATIVE (NEGATIVE); LEUKOCYTE ESTERASE,URINE NEGATIVE (NEGATIVE); NITRITE,URINE NEGATIVE (NEGATIVE); PROTEIN,URINE 30 mg/dL (NEGATIVE); URINE SPECIFIC GRAVITY 1.014; UROBILINOGEN,URINE NEGATIVE mg/dL (<2.0)
[2020-04-11 20:19] LABS: URINE CREATININE 131.4 mg/dL (22-328); URINE PROTEIN 22.4 mg/dL (<12)
--- NOTE | 2020-04-11 21:27 | EKG REPORT ---
SEVERITY:- ABNORMAL ECG - UNKNOWN RHYTHM, IRREGULAR RATE 56-82 RIGHT BUNDLE BRANCH BLOCK : Confirmed by: Evi Neumann MD 11-Apr-2020 21:27:20
--- NOTE | 2020-04-11 22:00 | PDOC CONSULTATION ---
Consultation Consult Date: 04/11/20 Provider Consulted: YOU GRIJALVA Consult reason:: SANDIE/CKD History of Present Illness Admission Date/PCP: 04/11/20 01:30 RADHA AGUILAR MD History of Present Illness: ZAYNAB MADRIGAL is a 84 year old male with history of hypertension, diabetes mellitus type 2, hyperlipidemia, BPH, erectile dysfunction, and diabetic neuropathy who was brought to the ED last night due to a syncopal episode. Apparently a friend found the patient on the floor unresponsive and so EMS was called. Patient was noted to have blood glucose of only 56. Patient really could not tell me what happened prior to him passing out last night. He stated that today he just feels great and has no complaints. He remembered that about 3 weeks ago he also had an episode of passing any solid masses no hydronephrosis. Does indicate enlarged prostate with nodular protrusion to the base of the bladder. At home. He said nobody found him at the time but then when he got awakened he had to get up on his own sustaining some abrasion in his left knee and leg and right heel ulceration. He did not seek any medical attention at the time. Patient has bilateral lower extremity neuropathy and feels numb so he has had trauma to his legs. Patient states that he just saw his PCP about 3 weeks ago and was told that he was doing great. He also stated that he ordered some medication in TV 3 weeks ago for erectile dysfunction which he has been taking daily but could not tell me the name of it. Initial evaluation showed no acute findings on the cervical spine CT, head CT and chest x-ray. His labs showed a BUN of 38, creatinine of 2.39 with EGFR of 32. Today he has a BUN of 36, creatinine of 2.19 and EGFR of 35. Review of previous records showed that in September 2016 he had a BUN of 33, creatinine 1.62 with GFR of 50. His hemoglobin is 9, phosphorus 2.8, PTH of 165.6 and vitamin D of 40.8. His iron is 34, T sat of 12 ferritin 88.2. Patient states that he was told that he has weak kidneys 3 to 4 weeks ago. He stated that he saw urologist, Dr. Knott and he was given a medication which helped to empty his bladder. Otherwise he states that he has now good urine flow and denies any incontinence currently, no gross hematuria. He denies any leg swelling. He denies any history of kidney stones, hepatitis no use of any NSAIDs. His kidney ultrasound showed relatively bilateral small kidneys with normal echogenicity and no hydronephrosis. It also indicates enlarged prostate with nodular protrusion at the base of the bladder. Currently denies any chest pains, shortness of breath, dizziness, headache, palpitations, cough, fever, nausea, vomiting or diarrhea. Past Medical History Cardiac Medical History: Reports: Hyperlipidemia, Hypertension-primary Pulmonary Medical History: Reports: Asthma - A CHILD Endocrine Medical History: Reports: Diabetes Mellitus Type 2, Hypogonadism, Other - Erectile dysfunction Complications of Diabetes: Reports: Autonomic Neuropathy Renal/ Medical History: Reports: Benign Prostatic Hyperplasia, Chronic Kidney Disease Stage III Musculoskeltal Medical History: Reports: Arthritis, Other - History of left leg fracture Past Surgical History Past Surgical History: Reports: Appendectomy, Orthopedic Surgery - Left knee surgery, right hip surgery Social History Information Source: Patient Lives with: Alone Smoking Status: Former Smoker - Quit 20 years ago Cigarettes Packs Per Day: 2 Electronic Cigarette use?: No Number of Years Smokin Last Time Smoked: 20 years Frequency of Alcohol Use: None Hx Recreational Drug Use: No Drugs: None Hx Prescription Drug Abuse: No Family History Family History: Malignancy - Brother, father, mother Parental Family History Reviewed: Yes Children Family History Reviewed: Yes Sibling(s) Family History Reviewed.: Yes Medication/Allergy Home Medications: Amlodipine Besylate [Norvasc 5 mg Tablet] 5 mg PO QPM 05/03/19 Glipizide [Glipizide Xl] 10 mg PO BID 05/03/19 Lisinopril/Hydrochlorothiazide [Lisinopril-Hctz 20-12.5 mg Tab] 1 tab PO QAM 05/03/19 Pioglitazone HCl [Actos 30 mg Tablet] 30 mg PO DAILY 05/03/19 Pravastatin Sodium 40 mg PO QPM 05/03/19 Sitagliptin Phosphate [Januvia 50 mg Tablet] 50 mg PO DAILY 05/03/19 Sildenafil Citrate 50 mg PO PRN PRN 04/11/20 Allergies/Adverse Reactions: No Known Allergies Allergy (Verified 05/03/19 15:37) Review of Systems All systems: reviewed and no additional remarkable complaints except as stated Review of Systems: Constitutional: ABSENT: chills, fatigue, fever(s), headache(s), weight gain, weight loss Eyes: ABSENT: visual disturbances Ears: ABSENT: hearing changes Cardiovascular: ABSENT: chest pain, dyspnea on exertion, edema, orthropnea, palpitations Respiratory: ABSENT: cough, dyspnea, hemoptysis Gastrointestinal: ABSENT: abdominal pain, constipation, diarrhea, hematemesis, hematochezia, nausea, vomiting Genitourinary: ABSENT: dysuria, hematuria Musculoskeletal: ABSENT: joint swelling Integumentary: ABSENT: rash, wounds Neurological: ABSENT: abnormal gait, abnormal speech, confusion, dizziness, focal weakness, numbness, syncope Psychiatric: ABSENT: anxiety, depression Endocrine: ABSENT: cold intolerance, heat intolerance, polydipsia, polyuria Hematologic/Lymphatic: ABSENT: easy bleeding, easy bruising, lymphadenopathy Physical Exam Vital Signs: Temp Pulse Resp BP Pulse Ox 98.7 F 75 14 161/77 H 100 04/11/20 07:27 04/11/20 07:27 04/11/20 07:27 04/11/20 07:27 04/11/20 07:27 Intake & Output 04/10/20 04/11/20 04/12/20 06:59 06:59 06:59 Intake Total 120 1000 Balance 120 1000 Weight 85.9 kg Exam: General appearance: No acute distress, cooperative, well-developed, well- nourished Head exam: PRESENT: atraumatic, normocephalic Eye exam: PRESENT: Conjunctiva [place], EOMI, PERRLA. ABSENT: conjunctival injection, scleral icterus Mouth exam: PRESENT: moist, neck supple, tongue midline Neck exam: PRESENT: full ROM. ABSENT: carotid bruit, JVD, lymphadenopathy, thyromegaly Respiratory exam: PRESENT: Diminished to auscultation bilaterally. Mild rhonchi posteriorly ABSENT: rales, stridor, wheezes Cardiovascular exam: PRESENT: RRR, +S1, +S2. ABSENT: systolic murmur Pulses: PRESENT: normal radial pulses, normal dorsalis pedis pulses GI/Abdominal exam: PRESENT: normal bowel sounds, soft. ABSENT: guarding, mass, tenderness Rectal exam: Deferred Extremities exam: PRESENT: full ROM. Right heel ulcer, left leg abrasion and knee abrasion which are healing. ABSENT: calf tenderness, pedal edema Musculoskeletal: PRESENT: full ROM. ABSENT: deformity Neurological exam: PRESENT: alert, Awake, Oriented to person, Oriented to place, Oriented to time, reflexes normal, CN II-XII grossly intact. ABSENT: motor sensory deficit Psychiatric exam: PRESENT: appropriate affect, normal mood. ABSENT: homicidal ideation, suicidal ideation Skin exam: PRESENT: intact, dry, warm. ABSENT: rash Results Laboratory Results: 04/10/20 18:40 04/10/20 18:40 04/10/20 04/10/20 18:40 18:40 WBC 9.5 RBC 3.83 L Hgb 12.9 L Hct 37.1 L MCV 97 MCH 33.6 H MCHC 34.7 RDW 16.4 H Plt Count 290 Seg Neutrophils % Not Reportable Sodium 145.4 H Potassium 4.8 Chloride 112 H Carbon Dioxide 24 Anion Gap 9 BUN 38 H Creatinine 2.39 H Est GFR ( Amer) 32 L Glucose 99 Calcium 9.3 Total Bilirubin 0.6 AST 27 Alkaline Phosphatase 74 Total Protein 7.9 Albumin 4.3 04/10/20 04/10/20 04/11/20 18:40 18:40 00:04 Creatine Kinase 176 H CK-MB (CK-2) 1.23 Troponin I < 0.012 0.028 04/11/20 08:55 Creatine Kinase CK-MB (CK-2) Troponin I 0.021 Impressions: Cervical Spine CT 04/10/20 20:54 IMPRESSION: 1. No acute intracranial hemorrhage. 2. No acute fracture or subluxation of the cervical spine. Head CT 04/10/20 20:54 IMPRESSION: 1. No acute intracranial hemorrhage. 2. No acute fracture or subluxation of the cervical spine. Chest X-Ray 04/11/20 01:13 IMPRESSION: No acute disease. Assessment & Plan - Diagnosis (1) Acute kidney injury superimposed on CKD Is this a current diagnosis for this admission?: Yes Plan: Patient is either acute worsening of underlying chronic kidney disease or just chronic kidney disease which has progressed from previous. Available baseline creatinine was 1.6 in 2017. Risk factors for chronic kidney disease include diabetes mellitus type 2, hypertension with BPH. Kidney ultrasound showed bilateral small kidneys with the right kidney measuring at 9.6 cm and left kidney at 9.1 cm which is consistent with chronic kidney disease. There was no hydronephrosis nor solid or suspicious masses. Continue current IV fluid hydration. Monitor kidney function. Avoid nephrotoxic medications. Will get records from Dr. [place] all his current baseline kidney function. Patient does not need any renal replacement therapy at this time. Patient would need nephrology follow-up as an outpatient moving forward upon discharge from this hospitalization. We will check urinalysis and urine protein to creatinine ratio. Monitor strict intake and output. (2) Hypertension Is this a current diagnosis for this admission?: Yes Plan: Currently suboptimally controlled. Once stabilize his lisinopril can still be increased to introduce another blood pressure medication. (3) Diabetes mellitus type 2 in nonobese Is this a current diagnosis for this admission?: Yes (4) Anemia in chronic kidney disease (CKD) Is this a current diagnosis for this admission?: Yes Plan: Associated with some iron deficiency. Will start ferrous sulfate. (5) Chronic kidney disease-mineral and bone disorder Is this a current diagnosis for this admission?: Yes Plan: PTH of 165.6, phosphorus of 2.8 and vitamin D of 40.8. Start calcitriol 0.25 mcg 3 times a week. (6) BPH (benign prostatic hyperplasia) Is this a current diagnosis for this admission?: Yes (7) Hypoglycemia Is this a current diagnosis for this admission?: Yes Plan: My either decrease the dose of glipizide or completely discontinue it and replace with other diabetic medication including an SGLT2 inhibitor. (8) Syncopal episodes Qualifiers: Syncope type: unspecified Qualified Code(s): R55 - Syncope and collapse Is this a current diagnosis for this admission?: Yes Plan: Could be due to hypoglycemia due to sulfonylurea. - Notes Notes: Thank you very much for this consultation.
[2020-04-12] MEDS: 1/2 NORMAL SALINE 1,000 ML IV PRN (02:37)
[2020-04-12] MEDS: HEPARIN SOD (PORCINE) 5,000 UNIT/ML 1 ML VIAL SUBCUT SCH (05:17)
[2020-04-12] MEDS: GABAPENTIN 100 MG CAPSULE PO SCH (05:17)
[2020-04-12 05:57] LABS: ABSOLUTE EOSINOPHILS # (AUTO) 0.2 10^3/uL (0.0-0.6); ABSOLUTE LYMPHOCYTES (AUTO) 2.8 10^3/uL (0.5-4.7); ABSOLUTE MONOCYTES (AUTO) 0.6 10^3/uL (0.1-1.4); ABSOLUTE NEUT (AUTO) 4.7 10^3/uL (1.7-8.2); BASOPHILS % (AUTO) 0.5 % (0-2); EOSINOPHILS % (AUTO) 2.1 % (0-6); HEMATOCRIT 30.6 % (37.9-51.0); HEMOGLOBIN 10.5 g/dL (13.5-17.0); LYMPHOCYTES % (AUTO) 33.2 % (13-45); MEAN CORPUSCULAR HEMOGLOBIN 33.8 pg (27.0-33.4); MEAN CORPUSCULAR HGB CONC 34.3 g/dL (32.0-36.0); MEAN CORPUSCULAR VOLUME 98 fl (80-97); MONOCYTES % (AUTO) 7.4 % (3-13); PLATELET COUNT 239 10^3/uL (150-450); RED BLOOD COUNT 3.11 10^6/uL (4.35-5.55); RED CELL DISTRIBUTION WIDTH 15.7 % (11.5-14.0); SEGMENTED NEUTROPHILS % (AUTO) 56.8 % (42-78); TOTAL CELLS COUNTED % (AUTO) 100 %; WHITE BLOOD COUNT 8.3 10^3/uL (4.0-10.5)
[2020-04-12 06:01] LABS: INTERNATIONAL RATION (INR) 1.04; PROTHROMBIN TIME 13.8 SEC (11.4-15.4)
[2020-04-12 06:10] LABS: ALKALINE PHOSPHATASE 58 U/L (38-126); ANION GAP 7 (5-19); ASPARTATE AMINO TRANSFERASE 18 U/L (17-59); BILIRUBIN,DIRECT 0.2 mg/dL (0.0-0.4); BILIRUBIN,TOTAL 0.6 mg/dL (0.2-1.3); BLOOD UREA NITROGEN 37 mg/dL (7-20); CALCIUM 8.3 mg/dL (8.4-10.2); CARBON DIOXIDE 20 mmol/L (22-30); CHLORIDE 114 mmol/L (98-107); GLUCOSE 94 mg/dL (75-110); PHOSPHORUS 3.2 mg/dL (2.5-4.5); POTASSIUM 4.7 mmol/L (3.6-5.0); TOTAL PROTEIN 5.8 g/dL (6.3-8.2); TRIGLYCERIDES 95 mg/dL (<150)
[2020-04-12 06:21] LABS: DIRECT LDL 48 mg/dL (<100)
[2020-04-12 06:26] LABS: FREE T4 (FREE THYROXINE) 1.43 ng/dL (0.78-2.19)
[2020-04-12 06:40] LABS: THYROID STIMULATING HORMONE 2.75 uIU/mL (0.47-4.68)
[2020-04-12] MEDS: INSULIN LISPRO 100 UNIT/ML 3 ML VIAL SUBCUT SCH (07:52)
[2020-04-12] MEDS: HYDROCHLOROTHIAZIDE 12.5 MG TABLET PO SCH (08:22)
[2020-04-12] MEDS: DOCUSATE SODIUM 100 MG CAPSULE PO SCH (09:28)
[2020-04-12] MEDS: FAMOTIDINE 20 MG TABLET PO SCH (09:28)
[2020-04-12] MEDS: SITAGLIPTIN PHOSPHATE 50 MG TABLET PO SCH (09:28)
[2020-04-12] MEDS: LISINOPRIL 10 MG TABLET PO SCH (09:29)
[2020-04-12] MEDS: AMLODIPINE BESYLATE 5 MG TABLET PO SCH (09:29)
[2020-04-12] MEDS ORDERED: FERROUS SULFATE 325 MG TABLET PO SCH (10:00)
[2020-04-12] MEDS ORDERED: ASPIRIN 81 MG TABLET, CHEWABLE PO SCH (10:00)
[2020-04-12] MEDS ORDERED: CYANOCOBALAMIN (VITAMIN B-12) 1,000 MCG TABLET PO SCH (10:00)
--- NOTE | 2020-04-12 10:26 | XCELERA REPORT ---
[address] [address] Transthoracic Echocardiogram Report Name: ZAYNAB MADRIGAL Age: 84 yrs Gender: Male : 1935 Patient Status: Inpatient Patient Location: [address] [place], [place] [address] Study Date: 04/11/2020 01:15 PM Height: 72 in Weight: 189 lb BSA: 2.1 m2 Procedure: A two-dimensional transthoracic echocardiogram with color flow and Doppler was performed. Study Quality: Fair. Reason For Study: syncopal episodes History: syncopal episodes. Ordering Physician: KELI THORNTON Performed By: Ninoska Saunders Interpretation Summary The left ventricle is normal in size. There is normal left ventricular wall thickness. LV EF is 65% Left ventricular systolic function is normal. Doppler measurements suggest normal left ventricular diastolic function The left ventricular wall motion is normal. There is no thrombus. cANNOT ASSESS asd ,vsd,OR pfo. The right ventricle is normal in size and function. The right atrium is normal. The left atrial size is normal. There is no evidence of mitral valve prolapse. There is no vegetation seen on the mitral valve. There is no mitral valve stenosis. There is a trace amount of mitral regurgitation There is no aortic valvular vegetation. There is mild aortic stenosis There is no LVOT obstruction. There is a peak gradient of 16.7 mm of Hg. No aortic regurgitation is present. There is no tricuspid stenosis. There is a trace amount of tricuspid regurgitation There is mild pulmonary hypertension by echo RVSP IS 35 MM OF hG , WITH RA MEAN OF 10. There is no pulmonic valvular stenosis. There is a trace amount of pulmonic regurgitation The aortic root is normal size. The inferior vena cava was not visualized There is no pericardial effusion. MMode/2D Measurements & Calculations RVDd: 2.3 cm LVIDd: 5.2 cm FS: 36.1 % Ao root diam: 3.0 cm IVSd: 0.99 cm LVIDs: 3.3 cm EDV(Teich): 127.4 ml Ao root area: 7.0 cm2 LVPWd: 1.4 cm ESV(Teich): 44.1 ml EF(Teich): 65.4 % LVOT diam: 2.0 cm LVOT area: 3.0 cm2 Doppler Measurements & Calculations MV E max allan: MV dec slope: Ao V2 max: LV V1 max P.5 cm/sec 446.8 cm/sec2 204.2 cm/sec 9.7 mmHg MV A max allan: MV dec time: Ao max PG: LV V1 max: 111.2 cm/sec 0.25 sec 16.7 mmHg 155.4 cm/sec MV E/A: 1.0 MARCUS(V,D): 2.3 cm2 PA V2 max: PI end-d allan: TR max allan: 87.7 cm/sec 96.4 cm/sec 248.5 cm/sec PA max P.1 mmHg TR max P.7 mmHg Left Ventricle The left ventricle is normal in size. There is normal left ventricular wall thickness. LV EF is 65%. Left ventricular systolic function is normal. Doppler measurements suggest normal left ventricular diastolic function. The left ventricular wall motion is normal. There is no thrombus. cANNOT ASSESS asd ,vsd,OR pfo. Right Ventricle The right ventricle is normal in size and function. Atria The right atrium is normal. The left atrial size is normal. Mitral Valve There is no evidence of mitral valve prolapse. There is no vegetation seen on the mitral valve. There is no mitral valve stenosis. There is a trace amount of mitral regurgitation. Aortic Valve There is no aortic valvular vegetation. There is mild aortic stenosis. There is no LVOT obstruction. There is a peak gradient of 16.7 mm of Hg. No hemodynamically significant valvular aortic stenosis. No aortic regurgitation is present. Tricuspid Valve There is no tricuspid stenosis. There is a trace amount of tricuspid regurgitation. There is mild pulmonary hypertension by echo. RVSP IS 35 MM OF hG , WITH RA MEAN OF 10. Pulmonic Valve There is no pulmonic valvular stenosis. There is a trace amount of pulmonic regurgitation. Great Vessels The aortic root is normal size. The inferior vena cava was not visualized. Effusions There is no pericardial effusion. : KELI THORNTON Lakshmi
--- NOTE | 2020-04-12 12:00 | PDOC DISCHARGE SUMMARY ---
Impression - Admit/DC Date/PCP Admission Date/Primary Care Provider: 04/11/20 01:30 RADHA AGUILAR MD Discharge Date: 04/12/20 - Discharge Diagnosis (1) LOC (loss of consciousness) Is this a current diagnosis for this admission?: Yes (2) Diabetes mellitus with hypoglycemia Is this a current diagnosis for this admission?: Yes (3) CKD (chronic kidney disease) stage 3, GFR 30-59 ml/min Is this a current diagnosis for this admission?: Yes (4) Diabetic ulcer of heel Is this a current diagnosis for this admission?: Yes (5) Diabetic infection of left foot Is this a current diagnosis for this admission?: Yes (6) Orthostatic hypotension Is this a current diagnosis for this admission?: Yes (7) BPH (benign prostatic hyperplasia) Is this a current diagnosis for this admission?: Yes (8) Hypertension Is this a current diagnosis for this admission?: Yes - Additional Information Discharge Diet: Diabetic Discharge Activity: Activity As Tolerated Referrals: Wound Care [Provider Group] YOU GRIJALVA MD [ACTIVE STAFF] - RADHA AGUILAR MD [Primary Care Provider] - Follow up as needed Prescriptions: Mupirocin [Bactroban 2% Ointment 22 gm] 1 applic TP TID #1 tube Calcitriol [Rocaltrol 0.25 mcg Capsule] 0.25 mcg PO TUTHSA #30 capsule Collagenase Clostridium Hist. [Santyl Ointment 30 gm] 1 applic TP DAILY #1 tube Home Medications: Pioglitazone HCl [Actos 30 mg Tablet] 30 mg PO DAILY 05/03/19 Pravastatin Sodium 40 mg PO QPM 05/03/19 Sitagliptin Phosphate [Januvia 50 mg Tablet] 50 mg PO DAILY 05/03/19 Sildenafil Citrate 50 mg PO PRN PRN 04/11/20 Calcitriol [Rocaltrol 0.25 mcg Capsule] 0.25 mcg PO TUTHSA #30 capsule 04/12/20 Collagenase Clostridium Hist. [Santyl Ointment 30 gm] 1 applic TP DAILY #1 tube 04/12/20 Lisinopril/Hydrochlorothiazide [Lisinopril-Hctz 20-12.5 mg Tab] 1 tab PO BID #0 04/12/20 Mupirocin [Bactroban 2% Ointment 22 gm] 1 applic TP TID #1 tube 04/12/20 History of Present Illiness History of Present Illness: According to admitting provider: ZAYNAB MADRIGAL is a 84 year old male past medical history of diabetes, hypertension, hyperlipidemia, BPH, erectile dysfunction, diabetic neuropathy, brought to ED after syncopal episode. Patient was found on the floor by her friend and EMS was called and patient was noted to have blood glucose level of 50s, patient was started on hypoglycemic protocol and hospitalist consulted for admission. CT head and neck were negative for acute abnormality. On my encounter patient comfortably sitting with no apparent distress, alert and oriented x4, cooperative and pleasant, denies any focal neurological symptoms, stating that 3 weeks ago he was found on the floor by his friend but did not seek any medical attention, patient is stating that once a while he feels lightheaded but denies any chest pain, palpitation, history of stroke, TIA, or any cardiac history. Patient was found on the floor again today by history as patient was brought to ED, patient stating that he does not recall anything preceding to the event however when his friend picked him up he was alert and oriented and was not confused, he was not noted to have had any convulsions. Patient denies any fever, chills, nausea, vomiting, diarrhea, constipation or any urinary symptoms. Patient has severe bilateral lower extremity neuropathy, as a result he tends to hit his lower extremities backslash has sustained several minor traumas, he also had a left foot heel ulceration due to the fall. He does wear diabetic shoes. Patient was seen by his PCP about 3 weeks ago and he was told that he was totally fine. Patient takes multiple medications including amlodipine, lisinopril, hydrochlorothiazide, Januvia, pioglitazone, glyburide, tadalafil, sildenafil. Patient does not use any [id number] NSAIDs or any nephrotoxic medication. Patient does state that he does not drink much fluid due to his BPH. Hospital Course Hospital Course: Patient was admitted to the hospital after experiencing an episode where he was found on the floor not too far away from his bed. This is the second time this is happened in the past recent weeks. He does not recall any actual syncopal episodes and last memory was that he was laying in bed to sleep and then later found on the floor. This was similar for both episodes so it is not certain the patient truly had an actual syncope. Notably on this episode, when patient was on the floor he was having a tough time trying to stand up and as such EMS was called. On arrival of the ambulance patient blood glucose was in the 50s. It is possible hypoglycemia is likely playing a role here. I did check patient's hemoglobin A1c which was 6.8 which shows more than excellent control of blood sugar for someone his age. I held his glipizide and continued his Januvia. His blood glucose readings on this regimen has been more than adequate. I believe patient's glipizide precipitated his hypoglycemic episodes especially in light of his gradually declining renal function. I have recommended on discharge the patient completely discontinue taking glipizide and that he can continue taking his pioglitazone and Januvia both closely monitor his blood sugars at least once a day. Patient also noted to have CKD and received IV fluids. His renal function was noted to have dropped from his prior baseline 3 years ago. With IV fluids, he is creatinine has nadired around 2.1. 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 He did have a renal ultrasound which showed significantly enlarged prostate but no evidence of hydronephrosis. He was seen by the correspondence renew clerk who indicated patient will need close outpatient follow-up and to start patient on calcitriol. I will have patient follow-up with Dr. Grijalva in the office. Regarding patient's hypertension, I did notice that he has orthostatic hypotension earlier in admission and I stopped his amlodipine. I have increased his lisinopril-hydrochlorothiazide regimen to twice a day from daily dosing. Patient also did get an echocardiogram for work-up of his loss of consciousness given that he had a mild systolic murmur. His echocardiogram shows mild aortic stenosis but being this mild, it is not contributing to his presentation and does not need any intervention. Patient has an infected stage II diabetic heel ulcer but no evidence of systemic inflammation. He will be treated with local wound care using Santyl for chemical debridement and mupirocin ointment. Patient will be set up with home nursing for wound management. Physical Exam Vital Signs: Temp Pulse Resp BP Pulse Ox 98.2 F 59 L 12 157/54 H 98 04/12/20 07:35 04/12/20 07:35 04/12/20 07:35 04/12/20 07:35 04/12/20 07:35 Intake & Output 04/11/20 04/12/20 04/13/20 06:59 06:59 06:59 Intake Total 120 3420 Output Total 500 Balance 120 2920 Weight 85.9 kg 88 kg General appearance: PRESENT: no acute distress, cooperative Neck exam: ABSENT: JVD Respiratory exam: PRESENT: symmetrical, unlabored. ABSENT: tachypnea, wheezes Cardiovascular exam: PRESENT: +S1, +S2, systolic murmur. ABSENT: tachycardia GI/Abdominal exam: PRESENT: soft. ABSENT: rebound, rigid, tenderness Extremities exam: PRESENT: other - stage 2 ulcer of left heel with exudate Neurological exam: PRESENT: alert, awake, oriented to person, oriented to place, oriented to time, oriented to situation Psychiatric exam: ABSENT: agitated, anxious Results Laboratory Results: WBC 8.3 10^3/uL (4.0-10.5) 04/12/20 05:17 RBC 3.11 10^6/uL (4.35-5.55) L 04/12/20 05:17 Hgb 10.5 g/dL (13.5-17.0) L 04/12/20 05:17 Hct 30.6 % (37.9-51.0) L 04/12/20 05:17 MCV 98 fl (80-97) H 04/12/20 05:17 MCH 33.8 pg (27.0-33.4) H 04/12/20 05:17 MCHC 34.3 g/dL (32.0-36.0) 04/12/20 05:17 RDW 15.7 % (11.5-14.0) H 04/12/20 05:17 Plt Count 239 10^3/uL (150-450) 04/12/20 05:17 Lymph % (Auto) 33.2 % (13-45) 04/12/20 05:17 Craven % (Auto) 7.4 % (3-13) 04/12/20 05:17 Eos % (Auto) 2.1 % (0-6) 04/12/20 05:17 Baso % (Auto) 0.5 % (0-2) 04/12/20 05:17 Reticulocyte # 0.027 10^6/uL (0.028-0.122) L 04/11/20 11:38 Absolute Neuts (auto) 4.7 10^3/uL (1.7-8.2) 04/12/20 05:17 Absolute Lymphs (auto) 2.8 10^3/uL (0.5-4.7) 04/12/20 05:17 Absolute Monos (auto) 0.6 10^3/uL (0.1-1.4) 04/12/20 05:17 Absolute Eos (auto) 0.2 10^3/uL (0.0-0.6) 04/12/20 05:17 Absolute Basos (auto) 0.0 10^3/uL (0.0-0.2) 04/12/20 05:17 Total Counted 100 04/10/20 18:40 Seg Neutrophils % 56.8 % (42-78) 04/12/20 05:17 Seg Neuts % (Manual) 82 % (42-78) H 04/10/20 18:40 Lymphocytes % (Manual) 14 % (13-45) 04/10/20 18:40 Monocytes % (Manual) 4 % (3-13) 04/10/20 18:40 Eosinophils % (Manual) 0 % (0-6) 04/10/20 18:40 Basophils % (Manual) 0 % (0-2) 04/10/20 18:40 Abs Neuts (Manual) 7.8 10^3/uL (1.7-8.2) 04/10/20 18:40 Abs Lymphs (Manual) 1.3 10^3/uL (0.5-4.7) 04/10/20 18:40 Abs Monocytes (Manual) 0.4 10^3/uL (0.1-1.4) 04/10/20 18:40 Absolute Eos (Manual) 0.0 10^3/uL (0.0-0.6) 04/10/20 18:40 Abs Basophils (Manual) 0.0 10^3/uL (0.0-0.2) 04/10/20 18:40 Platelet Comment ADEQUATE 04/10/20 18:40 Anisocytosis 1+ 04/10/20 18:40 Retic Count (auto) 0.83 % (0.66-2.85) 04/11/20 11:38 PT 13.8 SEC (11.4-15.4) 04/12/20 05:17 INR 1.04 04/12/20 05:17 Sodium 141.4 mmol/L (137-145) 04/12/20 05:17 Potassium 4.7 mmol/L (3.6-5.0) 04/12/20 05:17 Chloride 114 mmol/L (98-107) H 04/12/20 05:17 Carbon Dioxide 20 mmol/L (22-30) L 04/12/20 05:17 Anion Gap 7 (5-19) 04/12/20 05:17 BUN 37 mg/dL (7-20) H 04/12/20 05:17 Creatinine 2.11 mg/dL (0.52-1.25) H 04/12/20 05:17 Est GFR ( Amer) 36 (>60) L 04/12/20 05:17 Est GFR (MDRD) Non-Af 30 (>60) L 04/12/20 05:17 Glucose 94 mg/dL (75-110) 04/12/20 05:17 POC Glucose 101 mg/dL (70-110) 04/12/20 06:07 Hemoglobin A1c % 6.8 % (4.7-6.0) H 04/12/20 05:17 Calcium 8.3 mg/dL (8.4-10.2) L 04/12/20 05:17 Phosphorus 3.2 mg/dL (2.5-4.5) 04/12/20 05:17 Magnesium 1.9 mg/dL (1.6-2.3) 04/12/20 05:17 Iron 34.0 ug/dL (49-181) L 04/11/20 11:38 TIBC 275 ug/dL (250-450) 04/11/20 11:38 % Saturation 12 % 04/11/20 11:38 Ferritin 88.20 ng/mL (17.9-464.0) 04/11/20 11:38 Total Bilirubin 0.6 mg/dL (0.2-1.3) 04/12/20 05:17 Direct Bilirubin 0.2 mg/dL (0.0-0.4) 04/12/20 05:17 Neonat Total Bilirubin Not Reportable 04/12/20 05:17 Neonat Direct Bilirubin Not Reportable 04/12/20 05:17 Neonat Indirect Bili Not Reportable 04/12/20 05:17 AST 18 U/L (17-59) 04/12/20 05:17 ALT 11 U/L (<50) 04/12/20 05:17 Alkaline Phosphatase 58 U/L (38-126) 04/12/20 05:17 Creatine Kinase 176 U/L (55-170) H 04/10/20 18:40 CK-MB (CK-2) 1.23 ng/mL (<4.55) 04/10/20 18:40 Troponin I 0.021 ng/mL 04/11/20 08:55 Total Protein 5.8 g/dL (6.3-8.2) L 04/12/20 05:17 Albumin 3.0 g/dL (3.5-5.0) L 04/12/20 05:17 Triglycerides 95 mg/dL (<150) 04/12/20 05:17 Cholesterol 107.80 mg/dL (0-200) 04/12/20 05:17 LDL Cholesterol Direct 48 mg/dL (<100) 04/12/20 05:17 VLDL Cholesterol 19.0 mg/dL (10-31) 04/12/20 05:17 HDL Cholesterol 33 mg/dL (>40) L 04/12/20 05:17 Vitamin B12 < 159.0 pg/mL (239-931) L 04/11/20 11:38 Vitamin D 25-Hydroxy 40.8 ng/mL (14.7-68.3) 04/11/20 11:38 Folate > 20.00 ng/mL (>2.76) 04/11/20 11:38 TSH 2.75 uIU/mL (0.47-4.68) 04/12/20 05:17 Free T4 1.43 ng/dL (0.78-2.19) 04/12/20 05:17 PTH Intact 165.6 pg/mL (10.0-65.0) H 04/11/20 11:38 Urine Color YELLOW 04/11/20 19:20 Urine Appearance CLEAR 04/11/20 19:20 Urine pH 5.0 (5.0-9.0) 04/11/20 19:20 Ur Specific Eckley 1.014 04/11/20 19:20 Urine Protein 30 mg/dL (NEGATIVE) H 04/11/20 19:20 Urine Glucose (UA) NEGATIVE mg/dL (NEGATIVE) 04/11/20 19:20 Urine Ketones NEGATIVE mg/dL (NEGATIVE) 04/11/20 19:20 Urine Blood NEGATIVE (NEGATIVE) 04/11/20 19:20 Urine Nitrite NEGATIVE (NEGATIVE) 04/11/20 19:20 Urine Bilirubin NEGATIVE (NEGATIVE) 04/11/20 19:20 Urine Urobilinogen NEGATIVE mg/dL (<2.0) 04/11/20 19:20 Ur Leukocyte Esterase NEGATIVE (NEGATIVE) 04/11/20 19:20 Urine WBC (Auto) 2 /HPF 04/11/20 19:20 Urine RBC (Auto) 0 /HPF 04/11/20 19:20 U Hyaline Cast (Auto) 1 /LPF 04/11/20 19:20 Squamous Epi Cells Auto <1 /HPF 04/11/20 19:20 Urine Mucus (Auto) RARE /LPF 04/11/20 19:20 Urine Creatinine 131.4 mg/dL (22-328) 04/11/20 19:20 Urine Sodium 132 mmol/L (30-90) H 04/11/20 19:20 Urine Total Protein 22.4 mg/dL (<12) H 04/11/20 19:20 Urine Ascorbic Acid NEGATIVE (NEGATIVE) 04/11/20 19:20 04/10/20 04/11/20 04/11/20 18:40 00:04 08:55 CK-MB (CK-2) 1.23 Troponin I < 0.012 0.028 0.021 Impressions: Cervical Spine CT 04/10/20 20:54 IMPRESSION: 1. No acute intracranial hemorrhage. 2. No acute fracture or subluxation of the cervical spine. Head CT 04/10/20 20:54 IMPRESSION: 1. No acute intracranial hemorrhage. 2. No acute fracture or subluxation of the cervical spine. Renal Ultrasound 04/11/20 00:00 IMPRESSION: Prostatic enlargement with nodular protrusion into the base of the bladder. Chest X-Ray 04/11/20 01:13 IMPRESSION: No acute disease. Plan Time Spent: Greater than 30 Minutes Stroke Is this a Stroke Patient?: No Acute Heart Failure Is this a Heart Failure Patient?: No
[2020-04-12 12:59] VITALS: BP 152/55
[2020-04-12] MEDS ORDERED: CALCITRIOL 0.25 MCG CAPSULE PO SCH (22:01)
== END 2020-04-12 14:55 | disposition home health service (06) | DRG 638 ==
LOC: ER 17:29 → EH 04-11 01:30 → OBSVTOIN 04-11 01:30 → 4S 04-11 03:05
PROVIDERS: ADMIT Internal Medicine; ATTEND Internal Medicine
DX: E11.649 Type 2 diabetes mellitus with hypoglycemia without coma (principal); L97.422 Non-pressure chronic ulcer of left heel and midfoot with fat layer exposed; R55 Syncope and collapse; E78.5 Hyperlipidemia, unspecified; E11.22 Type 2 diabetes mellitus with diabetic chronic kidney disease; I12.9 Hypertensive chronic kidney disease with stage 1 through stage 4 chronic kidney disease, or unspecified chronic kidney disease; E11.40 Type 2 diabetes mellitus with diabetic neuropathy, unspecified; N52.9 Male erectile dysfunction, unspecified; N40.0 Benign prostatic hyperplasia without lower urinary tract symptoms; M19.90 Unspecified osteoarthritis, unspecified site; I95.2 Hypotension due to drugs; E11.621 Type 2 diabetes mellitus with foot ulcer; N18.3 Chronic kidney disease, stage 3 (moderate); E53.8 Deficiency of other specified B group vitamins; Z79.899 Other long term (current) drug therapy; D63.1 Anemia in chronic kidney disease; E83.9 Disorder of mineral metabolism, unspecified; T38.3X5A Adverse effect of insulin and oral hypoglycemic [antidiabetic] drugs, initial encounter
CPT/HCPCS: 36415; 70450; 71045; 72125; 76775; 80048; 80053; 80061; 81001; 82306; 82550; 82553; 82570; 82607; 82728; 82746; 82962; 83036; 83540; 83550; 83735; 83970; 84100; 84156; 84300; 84439; 84443; 84484; 85025; 85045; 85610; 93005; 93010; 93306; 99285; J1644; J3420; J7030

== ENCOUNTER 2020-05-24 11:19 | Emergency (ER) | payer MEDICARE, OTHER ==
[2020-05-24 11:25] VITALS: BP 174/65
--- NOTE | 2020-05-24 11:51 | ER Document Report ---
ED Medical Screen (RME) - General Chief Complaint: Foot Pain Stated Complaint: FOOT PAIN Time Seen by Provider: 05/24/20 11:47 Primary Care Provider: RADHA AGUILAR MD [Primary Care Provider] - Follow up as needed Mode of Arrival: Ambulatory Information source: Patient Notes: 84-year-old male with history of diabetes presents emergency department chief complaint of wound to his right heel. Patient reports wound has been there for several months, not getting any better. He reports mild pain with it. His daughter is a nurse, evaluated it today and told him he needed to come to the emergency department. Right heel has large diabetic wound/ulceration. I have greeted and performed a rapid initial assessment of this patient. A comprehensive ED assessment and evaluation of the patient, analysis of test results and completion of the medical decision making process will be conducted by additional ED providers. I have specifically instructed the patient or family members with the patient to immediately return to any nursing staff should anything change in the patient's condition or with their chief complaint. TRAVEL OUTSIDE OF THE [place] IN LAST 30 DAYS: No - Related Data Allergies/Adverse Reactions: No Known Allergies Allergy (Verified 05/24/20 11:46) Past Medical History - Past Medical History Cardiac Medical History: Reports: Hx Hypercholesterolemia, Hx Hypertension Denies: Hx Coronary Artery Disease, Hx Heart Attack Pulmonary Medical History: Reports: Hx Asthma - A CHILD Denies: Hx Bronchitis, Hx COPD, Hx Pneumonia Neurological Medical History: Denies: Hx Cerebrovascular Accident, Hx Seizures Endocrine Medical History: Reports: Hx Diabetes Mellitus Type 2 Renal/ Medical History: Reports: Hx Benign Prostatic Hyperplasia. Denies: Hx Peritoneal Dialysis Musculoskeltal Medical History: Reports Hx Arthritis Psychiatric Medical History: Denies: Hx Depression Past Surgical History: Reports: Hx Appendectomy, Hx Orthopedic Surgery - Left knee surgery, right hip surgery - Immunizations Hx Diphtheria, Pertussis, Tetanus Vaccination: No Physical Exam - Vital signs Vitals: Temp Pulse Resp BP Pulse Ox 98.3 F 79 16 174/65 H 100 05/24/20 11:23 05/24/20 11:23 05/24/20 11:23 05/24/20 11:23 05/24/20 11:23 Course - Vital Signs Vital signs: Temp Pulse Resp BP Pulse Ox 98.3 F 79 16 174/65 H 100 05/24/20 11:23 05/24/20 11:23 05/24/20 11:23 05/24/20 11:23 05/24/20 11:23 Doctor's Discharge - Discharge Referrals: RADHA AGUILAR MD [Primary Care Provider] - Follow up as needed
[2020-05-24 12:21] LABS: ABSOLUTE BASOPHILS # (AUTO) 0.1 10^3/uL (0.0-0.2); ABSOLUTE EOSINOPHILS # (AUTO) 0.1 10^3/uL (0.0-0.6); ABSOLUTE LYMPHOCYTES (AUTO) 2.1 10^3/uL (0.5-4.7); ABSOLUTE MONOCYTES (AUTO) 0.5 10^3/uL (0.1-1.4); ABSOLUTE NEUT (AUTO) 4.3 10^3/uL (1.7-8.2); BASOPHILS % (AUTO) 0.8 % (0-2); HEMATOCRIT 34.8 % (37.9-51.0); HEMOGLOBIN 11.9 g/dL (13.5-17.0); MEAN CORPUSCULAR HEMOGLOBIN 33.7 pg (27.0-33.4); MEAN CORPUSCULAR HGB CONC 34.2 g/dL (32.0-36.0); MEAN CORPUSCULAR VOLUME 99 fl (80-97); MONOCYTES % (AUTO) 7.2 % (3-13); PLATELET COUNT 272 10^3/uL (150-450); RED BLOOD COUNT 3.53 10^6/uL (4.35-5.55); RED CELL DISTRIBUTION WIDTH 14.6 % (11.5-14.0); TOTAL CELLS COUNTED % (AUTO) 100 %; WHITE BLOOD COUNT 7.1 10^3/uL (4.0-10.5)
[2020-05-24 12:49] LABS: ALKALINE PHOSPHATASE 87 U/L (38-126); ANION GAP 10 (5-19); ASPARTATE AMINO TRANSFERASE 20 U/L (17-59); BILIRUBIN,DIRECT 0.1 mg/dL (0.0-0.4); BILIRUBIN,TOTAL 0.5 mg/dL (0.2-1.3); BLOOD UREA NITROGEN 23 mg/dL (7-20); C-REACTIVE PROTEIN 6.6 mg/L (<10.0); CALCIUM 9.1 mg/dL (8.4-10.2); CARBON DIOXIDE 25 mmol/L (22-30); CHLORIDE 108 mmol/L (98-107); GLUCOSE 117 mg/dL (75-110); POTASSIUM 4.3 mmol/L (3.6-5.0)
--- NOTE | 2020-05-24 12:56 | RADIOLOGY REPORT (SQ) ---
EXAM DESCRIPTION: FOOT RIGHT COMPLETE IMAGES COMPLETED DATE/TIME: 05/24/2020 12:27 pm REASON FOR STUDY: wound at heel eval for gas/osteo COMPARISON: None. NUMBER OF VIEWS: Three views. TECHNIQUE: AP, lateral and oblique without weight bearing radiographic images acquired of the right foot. LIMITATIONS: None. FINDINGS: MINERALIZATION: Osteopenia BONES: No acute fracture or dislocation. No worrisome bone lesions. No evidence for osteomyelitis. JOINTS: No erosions. No oliver-articular osteopenia. No chondrocalcinosis. SOFT TISSUES: No soft tissue gas. OTHER: No other significant finding. IMPRESSION: No evidence for osteomyelitis. TECHNICAL DOCUMENTATION: JOB ID: [id number] 2010 [employer]- All Rights Reserved Reading location - IP/workstation name: [email or web address]
[2020-05-24 12:59] LABS: ERYTHROCYTE SEDIMENTATION RATE 29 mm/hr (0-20)
--- NOTE | 2020-05-24 14:22 | ER Document Report ---
Entered by CAROLYN SAWYER SCRIBE 05/24/20 1402 Acting as scribe for:CARRILLO SALAS MD ED Skin Rash/Insect Bite/Abscs - General Chief Complaint: Skin Sore(s) Stated Complaint: FOOT PAIN Time Seen by Provider: 05/24/20 11:47 Primary Care Provider: RADHA MENDOSA MD [Primary Care Provider] - Follow up as needed Mode of Arrival: Ambulatory Information source: Patient Notes: This 84 year old male patient presents to the emergency department today with complaints of a diabetic ulceration to the right heel. Patient reports that he has home health that comes to his house every Tuesday who takes care of his wounds. He previously also had a left heel wound which is now healed. Patient reports that the only reason he came in to the emergency department today was because his granddaughter who is some sort of home health nurse or nurses aide is visiting from out of town and she told him that he needed to "come get it looked at". He has no complaints at this time. TRAVEL OUTSIDE OF THE [place] IN LAST 30 DAYS: No - Related Data Allergies/Adverse Reactions: No Known Allergies Allergy (Verified 05/24/20 11:46) Home Medications: januvia. calcitriol. gabapentin Past Medical History - General Information source: Patient - Social History Smoking Status: Former Smoker Cigarette use (# per day): No Chew tobacco use (# tins/day): No Frequency of alcohol use: None Drug Abuse: None Family History: Reviewed & Not Pertinent Patient has homicidal ideation: No - Past Medical History Cardiac Medical History: Reports: Hx Hypercholesterolemia, Hx Hypertension Pulmonary Medical History: Reports: Hx Asthma - A CHILD Endocrine Medical History: Reports: Hx Diabetes Mellitus Type 2 Renal/ Medical History: Reports: Hx Benign Prostatic Hyperplasia Musculoskeletal Medical History: Reports Hx Arthritis Past Surgical History: Reports: Hx Appendectomy, Hx Orthopedic Surgery - Left knee surgery, right hip surgery - Immunizations Hx Diphtheria, Pertussis, Tetanus Vaccination: No Hx Pneumococcal Vaccination: 04/23/13 Review of Systems - Review of Systems Constitutional: denies: Fever EENT: No symptoms reported Cardiovascular: No symptoms reported Respiratory: No symptoms reported Gastrointestinal: No symptoms reported Genitourinary: No symptoms reported Male Genitourinary: No symptoms reported Musculoskeletal: No symptoms reported Skin: See HPI, Lesions Hematologic/Lymphatic: No symptoms reported Neurological/Psychological: No symptoms reported -: Yes All other systems reviewed and negative Physical Exam - Vital signs Vitals: Temp Pulse Resp BP Pulse Ox 98.3 F 79 16 174/65 H 100 05/24/20 11:23 05/24/20 11:23 05/24/20 11:23 05/24/20 11:23 05/24/20 11:23 - Notes Notes: Physical Exam: General: Alert, appears well. HEENT: Normocephalic. Atraumatic. PERRL. Extraocular movements intact. Oropharynx clear. Neck: Supple. Non-tender. Respiratory: No respiratory distress. Clear and equal breath sounds bilaterally. Cardiovascular: Regular rate and rhythm. Abdominal: Normal Inspection. Non-tender. No distension. Normal Bowel Sounds. Back: No gross abnormalities. Extremities: Moves all four extremities. Upper extremities: Normal inspection. Normal ROM. Lower extremities: The left heel has a dry flap of dark brownish skin which is approximately 2 x 5 mm over what appears to be an almost completely healed lateral heel ulcer. The right heel has about a 1 x 2 cm ulcer that appears to be a healing stage II ulcer. There is the circular dry peeling skin around it. This was debrided with sharp scissors. The deepest part of the wound appears to be in the deep dermal layer at this point, there is no erythema to the surrounding skin. There is minimal drainage noted on the dressing when it was removed. There is some tenderness to palpate the medial aspect of the wound suggesting the patient does have some sensation there. This wound is on the posterior heel suggesting this may be more of a friction ulcer and a patient with diabetic peripheral neuropathy. Neurological: Normal cognition. AAOx4. Normal speech. Psychological: Normal affect. Normal Mood. Skin: Warm. Dry. Normal color. Course - Re-evaluation Re-evalutation: 05/24/20 14:12 Patient's ESR is only 29. WBC is unremarkable. Chem-12 shows the patient has chronic renal insufficiency, but appears to be at his baseline. The patient's right heel ulcer appears to be a healing stage II, there is a little tenderness, there is minimal weeping, there is no erythema to the surrounding skin noted. The patient does report that wound skilled nursing health personnel come to his house regularly and have told him that the wound is getting better. On 04/25/2020 there appears to be an order for perhaps an evaluation at the wound care clinic, it is difficult to tell because what ever was ordered for that day by the wound care clinic nurse never occurred. - Vital Signs Vital signs: Temp Pulse Resp BP Pulse Ox 98.3 F 79 16 174/65 H 100 05/24/20 11:46 05/24/20 11:23 05/24/20 11:23 05/24/20 11:23 05/24/20 11:23 - Laboratory Result Diagrams: 05/24/20 12:08 05/24/20 12:08 Laboratory results interpreted by me: 05/24/20 05/24/20 12:08 12:08 RBC 3.53 L Hgb 11.9 L Hct 34.8 L MCV 99 H MCH 33.7 H RDW 14.6 H ESR 29 H Chloride 108 H BUN 23 H Creatinine 1.76 H Est GFR ( Amer) 45 L Est GFR (MDRD) Non-Af 37 L Glucose 117 H Discharge - Discharge Clinical Impression: Diabetic foot ulcer associated with type 2 diabetes mellitus Qualifiers: Diabetic foot ulcer location: heel Laterality: right Non-pressure ulcer stage: unspecified non-pressure ulcer stage Qualified Code(s): E11.621 - Type 2 diabetes mellitus with foot ulcer; L97.419 - Non-pressure chronic ulcer of right heel and midfoot with unspecified severity CKD (chronic kidney disease) stage 3, GFR 30-59 ml/min Qualifiers: Chronic kidney disease stage 3 subtype: stage 3a (GFR 45-59) Qualified Code(s): N18.31 - Chronic kidney disease, stage 3a Condition: Stable Disposition: HOME, SELF-CARE Additional Instructions: Your foot ulcer does not appear to be infected at this time. According to the history you provide, the ulcer is improving in appearance. You should follow-up with Dr. Mendosa tomorrow to see if he wants you to be seen in the wound care clinic, or to continue your home health visits. RETURN TO THE EMERGENCY ROOM IF ANY NEW OR WORSENING SYMPTOMS. Referrals: RADHA MENDOSA MD [Primary Care Provider] - Follow up as needed I personally performed the services described in the documentation, reviewed and edited the documentation which was dictated to the scribe in my presence, and it accurately records my words and actions.
== END 2020-05-24 14:37 | disposition home or self-care (01) ==
LOC: ER 11:19
DX: E11.621 Type 2 diabetes mellitus with foot ulcer (principal); L97.419 Non-pressure chronic ulcer of right heel and midfoot with unspecified severity; I12.9 Hypertensive chronic kidney disease with stage 1 through stage 4 chronic kidney disease, or unspecified chronic kidney disease; N18.31 Chronic kidney disease, stage 3a; Z79.899 Other long term (current) drug therapy; Z87.891 Personal history of nicotine dependence; J45.909 Unspecified asthma, uncomplicated
CPT/HCPCS: 36415; 80053; 85025; 85652; 86140; 99284